=== PATIENT | female | born 1930 | race Caucasian/White ===

== ENCOUNTER 2018-09-04 10:57 | Outpatient (CLI) | payer MEDICARE ==
--- NOTE | 2018-09-04 11:17 | RAD ---
Left ankle HISTORY: Left ankle injury. FINDINGS: Ankle mortise and talar dome are intact. A subtle irregular transverse linear lucency cross es the distal fibula just below the level of the ankle mortise. Overlying soft tissue swelling. Osseous structures are demineralized. Degenerative changes of the ankle and hindfoot. Calcification o kush the arterial structures. IMPRESSION: Nondisplaced Dela Cruz class C fracture distal left lateral malleolus. Osteoporosis. Atherosclerosis.
== END 2018-09-04 10:58 | disposition home or self-care (01) ==
LOC: BICRAD 10:57
PROVIDERS: ATTEND Family Medicine
DX: M25.572 Pain in left ankle and joints of left foot (principal); S82.65XA Nondisplaced fracture of lateral malleolus of left fibula, initial encounter for closed fracture; M81.0 Age-related osteoporosis without current pathological fracture; I70.90 Unspecified atherosclerosis